=== PATIENT | male | born 1985 | race Caucasian/White ===

== ENCOUNTER 2023-02-20 10:20 | Emergency (ER) | payer OTHER ==
[~2023-02-20] VITALS: Ht 175.3 cm; Wt 117.9 kg
[2023-02-20] MEDS ORDERED: ACETAMINOPHEN 325 MG TAB PO ONE (11:00)
[2023-02-20] MEDS ORDERED: METOCLOPRAMIDE 10 MG/2 ML VIAL IM ONE (11:00)
[2023-02-20] MEDS ORDERED: DEXAMETHASONE SOD PHOSPHATE 4 MG/ML 1ML VIAL IM SCH (12:00)
[2023-02-20] MEDS ORDERED: MORPHINE 4 MG SYG IM ONE (13:00)
[2023-02-20 14:00] LABS: SARS-CoV-2, RNA, NAAT NEGATIVE SARS CoV-2 (NEGATIVE)
[2023-02-20 14:05] LABS: INFLUENZA TYPE A Negative For Type A (NEGATIVE); INFLUENZA TYPE B Negative For Type B (NEGATIVE)
[2023-02-20] MEDS ORDERED: FLUT16H NASAL (15:25)
[2023-02-20] MEDS ORDERED: LORA10TA7 PO (15:25)
[2023-02-20] MEDS ORDERED: IBUP-2077 PO (15:25)
[2023-02-20] MEDS ORDERED: AZIT250T9 PO (15:49)
[2023-02-20 16:06] VITALS: BP 147/94; PULSE 78; RESP 18; O2SAT 98
== END 2023-02-20 16:15 | disposition home or self-care (01) ==
LOC: EDH 10:20
DX: J01.10 Acute frontal sinusitis, unspecified (principal); F41.9 Anxiety disorder, unspecified; F32.A Depression, unspecified; Z20.822 Contact with and (suspected) exposure to COVID-19
CPT/HCPCS: 99285; 70450; 87635; 87804 ×2; 96372 ×2; J1100; C9803; J2270; J2765